=== PATIENT | male | born 2000 | race Caucasian/White ===

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

== ENCOUNTER 2021-09-30 17:10 | Emergency (ER) | payer OTHER ==
[~2021-09-30] VITALS: Ht 167.6 cm; Wt 68.0 kg
== END 2021-09-30 20:54 | disposition home or self-care (01) ==
LOC: ER 17:10
DX: M62.830 Muscle spasm of back (principal); Z91.011 Allergy to milk products; Z91.013 Allergy to seafood